=== PATIENT | female | born 1960 | race Caucasian/White ===

== ENCOUNTER 2019-05-31 07:19 | Day surgery (SDC) | payer OTHER, SELFPAY ==
--- NOTE | 2019-05-31 07:39 | H&P.OPEN ---
History of Present Illness Date of Admission: 05/31/19 The patient is a 59 year old F presents for screening colonoscopy. Patient had a colonoscopy in 2008 due to small amount of rectal bleeding which only showed some internal hemorrhoids. Patient denies any family history of colon cancer. States she has bowel movements usually every other day denies any blood. Patient does state that she occasionally has right lower quadrant pain maybe once a month last for about 30 seconds but she does rated at 9/10 she used to get this more frequently patient has had an appendectomy, it can be with movement or having a bowel movement. Patient denies any nausea/vomiting/reflux. Past Medical/Surgical History - Planned Operation Planned Operative Procedure/s: cscope open access Date of Operative Procedure: 05/31/19 Permit Signed: No S.O.S: No Is This Patient Having a Total Joint: No - Previous Hospitalizations/Surgeries HX Hospitalizations: No HX of Surgeries: Laparoscopic gallbladder. Laparoscopic appendectomy. cscope 2008?negative only internal hemorrhoids seen Any Problems With Anesthesia: No You/Your Family Experience Fever (Hyperthermia) With Anes: No Cholinesterase deficiency: No - Cardiovascular Hx Chest Pain within Last 2 months: No Hx of Irregular Heartbeat and/or Afib: No Hx Heart Attack: No Hx Congestive Heart Failure: No Hx Rheumatic Fever: Yes Hx Hypertension: No Hx Internal Defibrillator: No Hx Pacemaker: No Hx Cardiac Catheterization: No Hx Cardiac Surgery/Stents/Etc.: No Hx Stress Test: Yes - over 5 yrs ago HX Edema: No Hx Pain in Legs when Walking/Leg Cramps: No - Respiratory Chronic Cough: No HX of Shortness of Breath: No Hoarseness: No Hx Chronic Obstructive Pulmonary Disease (COPD): No Hx Asthma: No Hx Emphysema: No Hx Sleep Apnea: No Hx Oxygen Use at Home: No Hx Respiratory Tract Infection/Cold (presently): No Do You Snore Loudly (louder than talking or can be heard): No Do You Often Feel Tired/ Fatigued/ Sleepy Dring Daytime?: No Has Anyone Observed You Stop Breathing During Sleep?: No Result (for STOP score): Negative Hx Smoking: No Smoking Status: Never smoker - Gastrointestinal Hx Gastroesophageal Reflux: Yes - in the past Controlled With Meds: No - no meds currently Hx Gastrointestinal Bleed: No Hx Ulcer: No Hx Hiatal Hernia: No Difficulty Chewing/Swallowing: No Recent Onset of Swallowing Problems: No Special diet followed at home: No Hx Unplanned Weight Loss of 20#: No HX Unplanned Weight Gain of 20#: No - Neurological Hx Seizures: No HX Syncope/Blackout Spells/Unconsciousness: Yes - brisk movement from bending over to standing gets syncope Hx CVA/Stroke: No Hx Transient Ischemic Attacks (TIA): No Hx Multiple Sclerosis: No Hx Parkinson's Disease: No Hx Head/Neck Injury: Yes - ddd Hx Headaches: Yes Hx Back Injury/Pain: Yes - ddd Recent Onset of Speech Difficulty: No Restless Legs: No Does patient have nerve stimulator: No Patient instructed to have device shut off: No Rep notified?: No - Blood Disorder Hx Leukemia: No Bleeding Tendencies: No Hx Deep Vein Thrombosis: No Hx High Cholesterol: No Blood Transmitted Disease: No Hx Hepatitis: No Hx Cirrhosis: No Hx Anemia: No Hx Blood Disorders: No - Reproduction : No Is Patient Lactating: No Hx Hysterectomy: No Hx Tubal Ligation: No Are You Post Menopause: Yes - Genitourinary Hx Renal Disease: No - Musculoskeletal Hx Arthritis: Yes Hx Rheumatoid Arthritis: No Hx Gout: No Recent Onset of an Orthopedic Problem: No - Endocrine Hx Diabetes: No Thyroid Disease: No Hx Steroid Therapy: No - Psycho/Social Hx Substance Use: No Hx Alcohol Use: No Hx Anxiety: No Hx Depression: No Mental Illness: No Hx Dementia: No - Miscellaneous Hx Cancer: No Recent Exposure to Contagious Disease: No Active MRSA: No Hx of C-Diff: No Any Loose Teeth: No Allergies levofloxacin [From Levaquin] Allergy (Intermediate, Verified 05/30/19 11:45) unsure loteprednol [From Alrex] Allergy (Mild, Verified 05/30/19 11:45) itching - Discharge Is Pt Admitted From a [facility], or a Correction: No Who Could Help: family After D/C, Where Do you Plan to Go: Return Home - Physical Exam General: Alert, Oriented x3, Cooperative, No apparent distress HEENT: Atraumatic Lungs: Normal air movement Cardiovascular: Regular rate Abdomen: Soft, Non Tender, Non-Distended Extremities: No clubbing, No cyanosis, No edema Neurological: Cranial nerves II-XII grossly intact Psych/Mental Status: Normal Affect Assessment/Plan 59-year-old female for screening for colon cancer Surgery Risks - Colonoscopy I discussed with the patient the risks of the procedure: Yes Risks Include but are not Limited To: Risks include but are not limited to: Bleeding, perforation requiring further surgery, inability to complete colonoscopy requiring barium enema. Patient and had no further questions at this time.
[2019-05-31 07:47] VITALS: BP 105/71; PULSE 66; RESP 16; TEMP 36.3; O2SAT 97; BMI 28.3
[2019-05-31] MEDS: Lactated Ringers 1,000 ML 100 ML IV (08:01)
--- NOTE | 2019-05-31 08:30 | COLBX_PTH ---
PATIENT: FADI SHERMAN LOC: EN U#:[id number] AGE/SX: 59/F ROOM: RE05/31/[address]: Dr. Kennedi Gustafson MD : 1960 BED: DIS: 05/31/2019 SPEC #: [id number] RECD: 05/31/19 10:47 STATUS: AVILA NORMA #: [id number] ROSY: 05/31/19 08:[address]: Kennedi Gustafson DEPT: SURGICAL PATHOLOGY RECD BY: Patrick Adorno ENTERED: 05/31/19 13:31 SP TYPE: COLON BX OTHR DR: Orly Roberson, STOCK ROLLER-C Tissues: A - Transverse colon B - Rectum, NOS Procedures: Surgery Specimen Level IV HEADER OPERATION: Colonoscopy - open access (MAC) PRE-OP DIAGNOSIS: Screening TISSUE SUBMITTED: A. Transverse polyp, B. Proximal rectum polyp MICROSCOPIC DIAGNOSIS A. Transverse colon polyp, biopsy: Fragments of tubular adenoma. B. Proximal rectal polyp, biopsy: Colonic mucosa with hyperplastic change. AM:henry 06/01/19 COMMENT Case has been reviewed in consultation with Dr. Adrian who concurs with the above diagnosis. IDC:KAREN MICROSCOPIC DESCRIPTION Slides are reviewed. GROSS DESCRIPTION A - Received in fixative is one container labeled with the patient's name and designated transverse polyp. The specimen consists of a piece of so-pink polyp measuring 0.5 x 0.5 x 0.3 cm. The specimen is totally submitted in one cassette. B - Received in fixative is one container labeled with the patient's name and designated proximal rectum polyp. The specimen consists of one irregular fragment of light so soft tissue that measures 0.3 x 0.3 x 0.1 cm. The specimen is totally submitted in one cassette. / KAREN:henry 05/31/19 TC:5 CPT: 75858 x2
[2019-05-31 09:11] VITALS: BP 93/65; PULSE 63; RESP 16; TEMP 36.6; O2SAT 95
[2019-05-31 09:15] VITALS: BP 94/67; PULSE 59; RESP 16; O2SAT 94
--- NOTE | 2019-05-31 09:15 | OP.COLON_ITS ---
Patient Name: Vickie Cordon Procedure Date: 05/31/2019 8:19 AM Date of : 1960 Age: 59 Procedure: Colonoscopy Indications: Screening for colorectal malignant neoplasm Providers: Kennedi Gustafson MD Referring MD: Kennedi Gustafson MD Medicines: Monitored Anesthesia Care Patient Profile: This is a 59 year old female. Last Colonoscopy: 10 years ago. Complications: No immediate complications. Procedure: Pre-Anesthesia Assessment: - Prior to the procedure, a History and Physical was performed, and patient medications and allergies were reviewed. The patient's tolerance of previous anesthesia was also reviewed. The risks and benefits of the procedure and the sedation options and risks were discussed with the patient. All questions were answered, and informed consent was obtained. Prior Anticoagulants: The patient has taken no previous anticoagulant or antiplatelet agents. ASA Grade Assessment: II - A patient with mild systemic disease. After reviewing the risks and benefits, the patient was deemed in satisfactory condition to undergo the procedure. After I obtained informed consent, the scope was passed under direct vision. Throughout the procedure, the patient's blood pressure, pulse, and oxygen saturations were monitored continuously. The Duodenoscope was introduced through the anus and advanced to the cecum, identified by the ileocecal valve. The colonoscopy was performed without difficulty. The patient tolerated the procedure well. The quality of the bowel preparation was good. Scope In: 8:35:10 AM Scope Withdrawal Time 0 hours 18 minutes 39 seconds Scope Out: 9:05:22 AM Total Procedure Duration Time 0 hours 30 minutes 12 seconds Findings: Hemorrhoids were found on perianal exam. A 5 mm polyp was found in the transverse colon. The polyp was semi-pedunculated. The polyp was removed with a hot snare. Resection and retrieval were complete. A less than 5 mm polyp was found in the recto-sigmoid colon. The polyp was sessile. The polyp was removed with a cold biopsy forceps. Resection and retrieval were complete. Non-bleeding external and internal hemorrhoids were found during retroflexion. The hemorrhoids were Grade I (internal hemorrhoids that do not prolapse). Impression: - Hemorrhoids found on perianal exam. - One 5 mm polyp in the transverse colon, removed with a hot snare. Resected and retrieved. - One less than 5 mm polyp at the recto-sigmoid colon, removed with a cold biopsy forceps. Resected and retrieved. - Non-bleeding external and internal hemorrhoids. Recommendation: - Discharge patient to home. - Resume previous diet. - Continue present medications. - Await pathology results. - Repeat colonoscopy in 3 - 5 years for surveillance based on pathology results. Procedure Code(s): --- Professional --- 57618, Colonoscopy, flexible; with removal of tumor(s), polyp(s), or other lesion(s) by snare technique 53216, 59, Colonoscopy, flexible; with biopsy, single or multiple Diagnosis Code(s): --- Professional --- Z12.11, Encounter for screening for malignant neoplasm of colon K64.0, First degree hemorrhoids D12.3, Benign neoplasm of transverse colon (hepatic flexure or splenic flexure) D12.7, Benign neoplasm of rectosigmoid junction CPT copyright 2017 [employer]. All rights reserved. The codes documented in this report are preliminary and upon education nurse review may be revised to meet current compliance requirements. MD Kennedi Lara MD 05/31/2019 9:14:35 AM This report has been signed electronically. Number of Addenda: 0 Note Initiated On: 05/31/2019 8:19 AM
[2019-05-31 09:20] VITALS: BP 99/73; PULSE 58; RESP 16; O2SAT 94
[2019-05-31 09:24] VITALS: BP 105/71; BP 99/74; PULSE 57; RESP 16; TEMP 36.1; O2SAT 93
[2019-05-31 09:45] VITALS: BP 105/71
== END 2019-05-31 10:22 | disposition home or self-care (01) ==
LOC: EN 07:21 → AC 07:22
PROVIDERS: Family Provider Nurse Practitioner Family; PCP Nurse Practitioner Family; Referring Provider Surgery; Visit Provider Surgery
PROC: 0DJD8ZZ Inspection of Lower Intestinal Tract, Via Natural or Artificial Opening Endoscopic (ICD-10-PCS; CPT 45378; principal; 2019-05-31 08:25)
DX: Z12.11 Encounter for screening for malignant neoplasm of colon (principal); K64.0 First degree hemorrhoids; D12.5 Benign neoplasm of sigmoid colon; D12.7 Benign neoplasm of rectosigmoid junction; K64.4 Residual hemorrhoidal skin tags; K21.9 Gastro-esophageal reflux disease without esophagitis; D12.3 Benign neoplasm of transverse colon
CPT/HCPCS: 45380; 45385; 88305; J7120

== ENCOUNTER 2023-01-18 13:31 | Emergency (ER) | payer OTHER, SELFPAY ==
[2023-01-18 13:32] VITALS: BP 107/74; PULSE 79; RESP 18; TEMP 36.6; O2SAT 96
--- NOTE | 2023-01-18 14:18 | VDLE_ITS ---
Reason For Study: RLE PAIN RIGHT GSV is normal. CFV is compressible, spontaneous, phasic, competent and demonstrates normal augmentation. FV is compressible, spontaneous, phasic, competent and demonstrates normal augmentation. POP V is compressible, spontaneous, phasic, competent and demonstrates normal augmentation. T/P Trunk is compressible. RT PTV & PERV are DILATED & NONCOMPRESSIBLE C/W ACUTE DVT. Procedure This is a venous duplex using B-mode, color flow and spectral Doppler. Exam performed in department. A preliminary report was called and/or faxed to ED. VL/Venous Duplex US, Unilateral Interpretation Summary Nonvascular right popliteal fossa structure 2.51 x 1.54 cm in diameter, possibl e Glover's cyst. Clinical correlation would be appropriate Acute deep venous thrombosis right posterior tibial and peroneal veins Patent and compressible right great saphenous vein Ordering Physician: Avinash Vann Referring Physician: Orly Roberson Performed By: Delia Linares, DAY, RVT
[2023-01-18 15:31] VITALS: RESP 16
--- NOTE | 2023-01-18 16:15 | ED.VIS.LOWEX ---
HPI History of Present Illness Chief Complaint: Other, Pain/Inj Informant: patient Narrative Narrative: Patient had arthroscopic right knee meniscal repair about a week ago, and for the last several days she has been having a altered flow sensation of some sort in her distal right thigh and calf, along with pain in her calf, she has been nonweightbearing she supposed to be that for 4 weeks, on crutches and not moving her right leg much. She was placed on Eliquis 2.5 mg twice daily postoperatively which she is currently taking when this happened. No history of blood clots or clotting disorder that she knows of. She denies any chest pain shortness of breath palpitations or near syncope/syncope. No fevers or chills her knee is doing relatively well. [facility] Medical History GERD (gastroesophageal reflux disease) Hemorrhoid History of back problems Osteoarthritis Home Medications calcium carb-vit [id number] 333 mg-200 unit-133 mg-5 mg tablet 1 ea PO TID 05/30/19 [History Last Taken Unknown] cholecalciferol (vitamin D3) 125 mcg (5,000 unit) capsule 5,000 unit PO DAILY 05/30/19 [History Last Taken Unknown] multivitamin 1 ea PO DAILY 05/30/19 [History Last Taken Unknown] apixaban 5 mg (74 tabs) tablets in a dose pack (Eliquis DVT-PE Treat 30D Start) 5 mg PO BID #74 tabs 01/18/23 [Rx Last Taken Unknown] Allergy/AdvReac Type Severity Reaction Status Date / Time levofloxacin [From Levaquin] Allergy Intermediate unsure Verified 01/18/23 13:32 loteprednol [From Alrex] Allergy Mild itching Verified 01/18/23 13:32 Family History (Updated 05/10/19 @ 14:57 by Gale Moraes) Sister Diabetes Brother Bleeding disorder Hypertension Cancer skin Surgical History (Updated 05/10/19 @ 14:56 by Gale Moraes) History of appendectomy (~2007) History of cholecystectomy (~2004) History of colonoscopy (~2008) Social History Smoking Status: Never smoker ROS ROS ED Constitutional Constitutional ED: Denies chills or fever(s) Musculoskeletal Musculoskeletal: Reports as per HPI and extremity pain; Denies neck pain Integumentary Denies Abrasions, rash or wounds Neurologic Neurologic: Denies paresthesias or weakness EXAM Physical Exam Const Vital Signs: 01/18/23 13:32 Temperature 97.8 F Temperature Source Temporal Pulse Rate 79 Respiratory Rate 18 Blood Pressure 107/74 Blood Pressure Mean 85 Pulse Ox 96 Oxygen Delivery Method Room Air Positive well nourished and well developed General Appearance ED: well developed and NAD Neck full ROM and supple Back/Spine normal ROM and normal to inspection Extremity Extremity Narrative: Low normal range of motion of the right knee but there is no erythema or significant discomfort with minor ranging, and there is no swelling. Surgical incisions benign appearing, there is some swelling in the right calf with tenderness there but no palpable cords no edema distally at the ankle. Nontender in the thigh. Normal coloration compared with the contralateral side, well-perfused distally with 2+/4 dorsalis pedis pulse. Neuro oriented x3, no focal motor deficits and no sensory deficits noted Sensorium / Orientation: alert Psych mental status grossly normal and thought process normal Skin no wounds Rashes: no rashes MDM MDM MDM Narrative Medical decision making narrative: Duplex ultrasound obtained, does show acute DVT in the right posterior tibial and peroneal veins. 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 She had the surgery at [facility]. She is following up with her orthopedic surgeon there. I discussed with vascular here Dr. Mcqueen, he recommends doing the weeklong loading dose of Eliquis first and then backing down to 5 mg twice daily, all from the prophylactic dosing she is currently on. We will give the patient vascular to follow-up with here, she is going to try to follow-up with them at [facility], and she will have that option. Radiography Diagnostic Testing: Clinical Impression(s) from Imaging Studies Venous Doppler Study 01/18/23 14:18 Interpretation Summary Nonvascular right popliteal fossa structure 2.51 x 1.54 cm in diameter, possible Glover's cyst. Clinical correlation would be appropriate Acute deep venous thrombosis right posterior tibial and peroneal veins Patent and compressible right great saphenous vein Ordering Physician: Avinash Vann Referring Physician: Orly Roberson Performed By: Delia Linares RDCS, RVT Discharge Plan Triage Chief Complaint: Other, Pain/Inj ED Provider: Tay Enamorado Dx/Rx/DC Orders Clinical Impression: Acute deep vein thrombosis (DVT) of right peroneal vein, Deep vein thrombosis (DVT) of tibial vein of right lower extremity Instructions: DVT Dc Prescriptions: New Eliquis DVT-PE Treat 30D Start 5 mg (74 tabs) tablets,dose pack 5 mg PO BID Qty: 74 0RF Rx Instructions: use as directed No Action multivitamin 1 EACH tablet 1 ea PO DAILY cholecalciferol (vitamin D3) 5,000 UNIT capsule 5,000 unit PO DAILY calcium carb-D3-mag [id number] 1 EACH tablet 1 ea PO TID Primary Care Provider: Linda Cason Referrals: Francisco Mcqueen MD [Med Staff - Active Staff] - (call for appt, or with vascular at [facility]) Orly Roberson IRON [employer]ER BLASTING, [employer] BLASTING-C [Non-Staff] - Activity Restrictions/Additional Instructions: Use new prescription starting tomorrow morning; take 10 mg tonight for your evening dose from your old prescription. After the new prescription runs out, you may use the rest of your old prescription until it is finished, maintaining 5 mg twice a daily with it, if you want. Disposition Disposition: Home, Self Care
== END 2023-01-18 16:33 | disposition home or self-care (01) ==
PROVIDERS: Emergency Provider Emergency Medicine; PCP Internal Medicine; Visit Provider Emergency Medicine
DX: I82.441 Acute embolism and thrombosis of right tibial vein (principal); I82.451 Acute embolism and thrombosis of right peroneal vein
CPT/HCPCS: 93971; 99282

== ENCOUNTER → 2023-01-28 | Outpatient (CLI) | payer OTHER, SELFPAY ==
--- NOTE | 2023-01-28 13:51 | VDLE_ITS ---
Reason For Study: Right leg pain RIGHT LEFT GSV is normal. CFV is compressible, spontaneous, phasic, CFV is compressible, spontaneous, phasic, competent, and demonstrates normal competent and demonstrates normal augmentation. augmentation. FV is compressible, spontaneous, phasic, competent and demonstrates normal augmentation. POP V is compressible, spontaneous, phasic, competent and demonstrates normal augmentation. T/P Trunk is compressible. PTV is compressible. RT PerV is compressible. Acute deep vein thrombosis is noted in the Soleus V. It is dilated and NONCOMPRESSIBLE. Procedure This is a venous duplex using B-mode, color flow and spectral Doppler. Exam performed in department. Compared to 01/18/23. A preliminary report was called and/or faxed to [facility]. VL/Venous Duplex US, Unilateral Interpretation Summary Acute deep vein thrombosis is noted in the right soleus vein. Resolution of previously visualized right peroneal and posterior tibial vein th rombus Ordering Physician: Desiree Adames Referring Physician: Linda Cason Performed By: Dary Darling RVT
== END | disposition home or self-care (01) ==
LOC: CVS 13:50
PROVIDERS: PCP Internal Medicine; Referring Provider Physician Assistant; Visit Provider Physician Assistant
DX: I82.451 Acute embolism and thrombosis of right peroneal vein (principal); I82.441 Acute embolism and thrombosis of right tibial vein
CPT/HCPCS: 93971

== ENCOUNTER → 2023-04-20 | Outpatient (CLI) | payer OTHER, SELFPAY ==
--- NOTE | 2023-04-20 14:50 | VDLE_ITS ---
Reason For Study: HX Soleal DVT / RLE Pain RIGHT LEFT GSV is normal. CFV is compressible, spontaneous, phasic, CFV is compressible, spontaneous, phasic, competent, and demonstrates normal competent and demonstrates normal augmentation. augmentation. FV is compressible, spontaneous, phasic, competent and demonstrates normal augmentation. POP V is compressible, spontaneous, phasic, competent and demonstrates normal augmentation. T/P Trunk is compressible. PTV is compressible. RT PerV is compressible. Soleal V is compressible. Compare to study on 01/28/2023. Procedure This is a venous duplex using B-mode, color flow and spectral Doppler. Exam performed in department. The exam was diagnostic. VL/Venous Duplex US, Unilateral Interpretation Summary Deep veins of the right lower extremity are patent and compressible segmentally . There is no evidence of right lower extremity deep vein thrombosis. The right great sapheno us vein appears patent and compressible segmentally. Resolution of prior soleal DVT Ordering Physician: Desiree Quick Referring Physician: Linda Cason Performed By: Xavi Owens RVT
== END | disposition home or self-care (01) ==
LOC: CVS 14:49
PROVIDERS: PCP Internal Medicine; Referring Provider Physician Assistant; Visit Provider Physician Assistant
DX: I82.409 Acute embolism and thrombosis of unspecified deep veins of unspecified lower extremity (principal); M79.604 Pain in right leg
CPT/HCPCS: 93971